=== PATIENT | female | born 1955 | race Caucasian/White ===

== ENCOUNTER 2016-11-20 12:18 | Emergency (ER) | payer OTHER ==
--- NOTE | ~2016-11-20 | CT2 ---
[facility] A Service of [facility] & [facility] / [facility] RADIOLOGY TEXT RESULTS PATIENT: RON BISHOP LOCATION: SED : 51 UNIT #: [id number] AGE: [address]: Jake Lion DO SEX: F ORDER DR: [id number] [place] [id number] E MR#: [id number] Acc #: [id number] NAME: RON BISHOP. : 1955 SEX: F STUDY DATE/TIME: 11/20/2016 14:31 UNIT: SED ROOM: STUDY DESCRIPTION: CT Abd and Pelv W Cont Attending Physician: (Er) Jake Lion Ordering Physician: (Er) Jake Lion MEDICAL IMAGING REPORT This report is preliminary unless electronic signature is present. EXAM CT of abdomen and pelvis with contrast. HISTORY 61-year-old female, abdominal pain, nausea since this morning. Gallbladder tumor removed. Hernia repair, 11/09/2016. TECHNIQUE NOTE: This CT exam was performed with one or more of the following radiation dose reduction techniques: automatic exposure control, adjustment of mA and/or kV according to patient size, and iterative reconstruction. FINDINGS Axial images performed through the abdomen and pelvis following IV and oral contrast. Multiplanar reconstructed images reviewed at a workstation. Lung bases demonstrate a small amount of left basilar atelectasis. No effusions. Heart size within normal limits. The liver demonstrates a low-attenuation lesion along the anterior capsule of the left lobe of the liver measuring 2.1 x 3.4 x approximately 3.8 cm. This contains a small area of calcification within the inferior aspect. I suspect this may represent a preexisting benign liver lesion, however, correlation with any outside study is recommended. An acute process is considered unlikely given its very focal nature, and does not have the typical appearance of a subcapsular hematoma. Patient is post-cholecystectomy. Spleen appears normal. Pancreas, kidneys and adrenal glands unremarkable. No free air or free fluid. Visualized GI tract unremarkable. PELVIS: The uterus is heterogeneous and irregular suggesting leiomyomatous changes. Calcifications in the left periadnexal region probably represents a calcified fibroid or less likely calcification within the left ovarian complex. Bladder unremarkable. Osseous STS. [facility] A Service of [facility] & [facility] / [facility] RADIOLOGY TEXT RESULTS PATIENT: RON BISHOP LOCATION: SED : 53 UNIT #: [id number] AGE: [address]: Jake Lion DO SEX: F ORDER DR: structures remarkable for L2-3 and L5-S1 degenerative disc changes. Surgical clips are noted along the upper anterior abdominal wall consistent with apparent ventral hernia repair with mesh. There is a sizeable inferior ventral hernia probably representing an umbilical hernia, and this measures 3.8 x 4.3 cm at its neck with a hernia sac measuring up to 8.4 cm containing multiple loops of bowel and mesentery. There is some induration of the mesenteric fat nonspecific. Correlate with targeted physical exam. IMPRESSION 1. Postsurgical changes from recent cholecystectomy. 2. 2.1 x 3.4 x 3.8 cm complex but predominately low attenuation lesion in the anterior surface of the left lobe of the liver. I suspect this represents a benign lesion. Correlation with any outside studies in this patient is recommended. An acute processes considered unlikely. 3. Postsurgical changes from ventral hernia repair with mesh across the upper abdomen. 4. Moderate to large umbilical hernia as detailed above with the hernia sac measuring up to 8.4 cm containing multiple loops of bowel mesentery with some clouding the mesentery, but no evidence to suggest high-grade obstruction. Correlate with targeted physical exam. Dictated by... Leo Bishop M.D. THIS IS AN ELECTRONICALLY VERIFIED REPORT Leo Bishop M.D. at 11/20/2016 8:37 PM Billy TD: 11/20/2016 18:23 JOB #: [id number] MEDICAL IMAGING REPORT Page 1 of 1
--- NOTE | ~2016-11-20 | EKG ---
PATIENT: RON ANDRADE UNIT #: [id number] Ventricular Rate: 61 BPM Atrial Rate: 61 BPM P-R Interval: 156 ms QRS Duration: 96 ms Q-T Interval: 438 ms QTC Calculation(Bezet): 440 ms P [place]: 47 degrees Calculated R [place]: -14 degrees Calculated T [place]: 24 degrees Diagnosis Line: Normal sinus rhythm Diagnosis Line: Normal ECG Diagnosis Line: No previous ECGs available Diagnosis Line: Confirmed by FREDA SANHCEZ MD ([id number]) on 11/25/2016 Diagnosis Line: 11:56:20 AM INTERPRETING MD: LAURA SILVA
[~2016-11-20 12:18] MED LIST: CALCIUM500 M1; CLARITIN5 MG; CLARITIN5 MG/5 ML; COZAAR; LASIX; LEVOTHYROXINE75 MC1 PO; SINGULAIR
[2016-11-20 12:59] LABS: BASOPHIL% 0.7 % (0-2.5); EOSINOPHIL# 0.1 X10e3 (0-0.7); EOSINOPHIL% 1.1 % (0.0-7.0); HEMATOCRIT 40.3 % (35.0-45.0); HEMOGLOBIN 13.4 gm/dL (12.0-16.0); LYMPHOCYTE# 0.8 X10e3 (1.0-3.5); LYMPHOCYTE% 11.4 % (17.0-45.0); MEAN CELL VOLUME 86.7 FL (83-96); MEAN CORPUSCULAR HEMOGLOBIN 28.9 PG (28-34); MEAN CORPUSCULAR HGB CONC 33.4 g/dL (30-36); MEAN PLATELET VOLUME 7.8 FL (6.5-11.5); MONOCYTE# 0.2 X10e3 (0-1.0); MONOCYTE% 3.1 % (3.0-12.0); NEUTROPHIL# 5.8 X10e3 (1.5-7.1); NEUTROPHIL% 83.7 % (40-75); PLATELET COUNT 229 X10e3 (140-420); RED BLOOD COUNT 4.65 X10e (3.90-5.30); RED CELL DISTRIBUTION WIDTH 13.6 % (11.0-15.5); WHITE BLOOD COUNT 6.9 X10e3 (4.0-10.5)
[2016-11-20 13:02] LABS: DIFF IND NO
[2016-11-20 13:17] LABS: ALBUMIN SERUM 4.4 g/dL (3.5-5.0); BILIRUBIN, DIRECT 0.1 mg/dL (0.0-0.2); BILIRUBIN,INDIRECT 0.4 mg/dL (0.0-0.9); BILIRUBIN,TOTAL 0.5 mg/dL (0.2-2.0); BUN/CREATININE RATIO 24.44; CALCIUM SERUM 9.1 mg/dL (8.4-10.2); CREATININE SERUM 0.9 mg/dL (0.6-1.4); GLOM FILT RATE Estimated 68.1 mL/min (>60); POTASSIUM 3.8 mmol/L (3.5-5.1); PROTEIN TOTAL SERUM 7.2 g/dL (6.0-8.3)
[2016-11-20 13:56] LABS: URINE SOURCE CLEAN CATCH
[2016-11-20 13:58] LABS: URINE APPEARANCE CLEAR; URINE BILIRUBIN NEG (NEG); URINE BLOOD NEG (NEG); URINE COLOR YELLOW; URINE GLUCOSE NEG (NORM); URINE KETONE NEG (NEG); URINE LEUKOCYTE ESTERASE TRACE (NEG); URINE NITRATE NEG (NEG); URINE PH 5.5 (5-8); URINE PROTEIN NEG (NEG); URINE SPECIFIC GRAVITY <=1.005 (1.003-1.035); URINE UROBILINOGEN 0.2 MG/DL (NORM)
[2016-11-20 13:59] LABS: MICRO INDICATED? YES
[2016-11-20 14:08] LABS: CULTURE INDICATED? YES; URINE BACTERIA NEG (NEG); URINE RBC 0-2 /[HPF] (0-2)
[2016-11-20 14:09] LABS: URINE SQUAMOUS EPITHELIAL CELL FEW /[HPF]
== END 2016-11-20 15:52 | disposition home or self-care (01) ==
LOC: SED 12:18
PROVIDERS: Emergency Medicine
DX: K42.9 Umbilical hernia without obstruction or gangrene (principal); I10 Essential (primary) hypertension; Z98.890 Other specified postprocedural states
CPT/HCPCS: 36415; 74177; 80048; 80076; 81003; 82150; 83690; 85025; 87086; 93005; 96374; 96375; 99284; J2270; J2405; Q9967